=== PATIENT | male | born 1995 | race Two or more races ===

== ENCOUNTER 2024-10-25 17:49 | Emergency (ER) | payer SELFPAY ==
[~2024-10-25] VITALS: Ht 167.6 cm; Wt 77.2 kg
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
--- NOTE | 2024-10-25 18:08 | ECG ---
[facility] Test Date: 2024-10-25 Test Time: 17:44:37 Pat Name: MARKO CORCORAN Department: ER Room: Gender: M [employer] Judge: DEVIN : 1995 Requested By: SALOMON IGNACIO Order Number: [id number] Reading MD: Reji Paul Measurements Intervals [place] Rate: 66 P: 47 MN: 145 QRS: -26 QRSD: 120 T: 41 QT: 383 QTc: 402 Interpretive Statements Sinus rhythm Nonspecific intraventricular conduction delay ST elevation suggests acute pericarditis Electronically Signed On 10-31-2024 13:35:39 PST by Reji Paul Please click the below link to view image of tracing.
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
[2024-10-25 18:38] LABS: Basophils # (auto) 0 10 ^3/uL (0-0.2); Basophils % (auto) 0.3 % (0.0-2.0); Eosinophils # (auto) 0 10 ^3/uL (0-0.8); Eosinophils % (auto) 0.4 % (0.0-7.0); Lymphocytes # (auto) 2.1 10 ^3/uL (0.4-5.4); Lymphocytes % (auto) 26.6 % (10.0-50.0); Mean Corpuscular Hemoglobin 27.5 pg (28.0-32.0); Mean Corpuscular Hgb Conc. 33.4 g/dL (32.0-36.0); Mean Corpuscular Volume 82.4 fL (80.0-100.0); Monocytes # (auto) 0.4 10 ^3/uL (0-1.3); Monocytes % (auto) 5.5 % (0.0-12.0); Neutrophils # (auto) 5.2 10 ^3/uL (1.6-8.6); Neutrophils % (auto) 67.2 % (37.0-80.0); Platelet Count (auto) 311 10^3/uL (140-450); Red Blood Cells 5.83 10^6/uL (4.5-5.90); Red Cell Distribution Width 13.6 % (11.8-14.3); White Blood Cell 7.7 10^3/uL (4.4-10.8)
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
[2024-10-25 18:51] LABS: Alanine Aminotransferase 30 U/L (7-40); Alkaline Phosphatase 70 U/L (46-116); Anion Gap 9 (5-15); Aspartate Aminotransferase 19 U/L (13-40); BUN/Creatinine Ratio 10.1 (10.0-20.0); Blood Urea Nitrogen 10 mg/dL (9-23); Calcium 10.1 mg/dL (8.7-10.4); Carbon Dioxide 27 mmol/L (20-31); Chloride 102 mmol/L (98-107); INR 1.02 (0.9-1.15); Magnesium 1.7 mg/dL (1.6-2.6); Partial Thromboplastin Time 28.5 SEC (24.5-34.5); Potassium 4.4 mmol/L (3.5-5.1); Prothrombin Time 10.8 sec (9.3-11.8); Sodium 138 mmol/L (136-145)
[2024-10-25 18:52] LABS: Bilirubin, Total 0.4 mg/dL (0.2-1.0)
[2024-10-25] MEDS: HYDROmorphone HCL 2 MG/ML VL/or syr IM ONE (18:54)
[2024-10-25 18:56] LABS: Glucose 109 mg/dL (74-106); Total Protein 8.5 g/dL (5.7-8.2)
[2024-10-25] MEDS: LACTULOSE 20Gm/30ML SOLN PO ONE (18:58)
[2024-10-25] MEDS: FLEET ENEMA(ADULT) 135 ML PR ONE ×2 (18:59)
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
[2024-10-25] MEDS ORDERED: HYDR-4902 PO (19:50)
[2024-10-25] MEDS ORDERED: IBUP-1455 PO (19:50)
[2024-10-25 20:37] VITALS: TEMP 98.3; O2SAT 98
[2024-10-25 20:38] VITALS: BP 147/69; PULSE 63; RESP 16
== END 2024-10-25 20:39 | disposition home or self-care (01) ==
LOC: ER 17:49 → EDBD 17:49 → ER 20:39
DX: S20.219A Contusion of unspecified front wall of thorax, initial encounter (principal); S16.1XXA Strain of muscle, fascia and tendon at neck level, initial encounter; V49.88XA Car occupant (driver) (passenger) injured in other specified transport accidents, initial encounter; Y93.89 Activity, other specified; Y92.89 Other specified places as the place of occurrence of the external cause; Y99.8 Other external cause status
CPT/HCPCS: 36415; 71045; 71250; 72125; 80053; 83735; 83880; 84484; 85025; 85610; 85730; 93005; 96372; 99285; J1171